=== PATIENT | female | born 1970 | race African-American/Black ===

== ENCOUNTER 2019-05-14 22:50 | Emergency (ER) | payer OTHER ==
[2019-05-14 23:03] VITALS: BP 135/93; PULSE 75; TEMP 98.7; BMI 26.6
[2019-05-14] MEDS ORDERED: KETOROLAC TROMETHAMINE 30 MG/1 ML VIAL IVPUSH ONE (23:16)
[2019-05-14] MEDS ORDERED: ONDANSETRON 4 MG/2 ML VIAL IVPB ONE (23:17)
[2019-05-14] MEDS ORDERED: KETOROLAC TROMETHAMINE 30 MG/1 ML VIAL ONE (23:27)
[2019-05-14] MEDS ORDERED: ONDANSETRON 4 MG/2 ML VIAL ONE (23:27)
[2019-05-14 23:34] LABS: BASO % 0.8 % (0-2.0); EOS % 5.6 % (0-4.5); HEMATOCRIT 34.1 % (32.4-45.2); HEMOGLOBIN 11.2 GM/dl (10.7-15.3); LYMPH % 50.8 % (8-40); MCH 26.6 pg (25.7-33.7); MCHC 32.8 g/dl (32.0-36.0); MEAN CELL VOLUME 81.1 fl (80-96); MEAN PLT VOLUME 7.2 fl (7.5-11.1); MONO % 5.2 % (3.8-10.2); NEUT % 37.6 % (42.8-82.8); PLATELET COUNT 400 K/MM3 (134-434); RDW 14.2 % (11.6-15.6); WHITE BLOOD COUNT 6.9 K/mm3 (4.0-10.8)
[2019-05-14 23:45] LABS: BILIRUBIN,TOTAL 0.3 mg/dl (0.2-1); CREATININE 0.6 mg/dl (0.55-1.3); POTASSIUM 4.1 mmol/L (3.5-5.1); TOT PROT 7.3 g/dl (6.4-8.2)
--- NOTE | 2019-05-15 01:08 | PDOC ---
Documentation entered by Madeline Henao SCRIBE, acting as scribe for Thong Gan MD. Thong Gan MD: This documentation has been prepared by the scribeJuliano Lincy, SCRIBE, under my direction and personally reviewed by me in its entirety. I confirm that the documentation accurately reflects all work, treatment, procedures, and medical decision making performed by me. History of Present Illness - General Chief Complaint: Pain Stated Complaint: R PELVIC PAIN - History of Present Illness Initial Comments: 05/14/19 23:18 Chief complaint: Abdominal pain HPI: Right lower quadrant abdominal pain for 2 days, getting worse. Accompanied by nausea and anorexia. No vomiting or diarrhea. No fever or chills. Seen at [facility] yesterday, where an ultrasound and urinalysis/ test were performed. The ultrasound showed only uterine fibroids. The urinalysis was clear and test negative. Review of systems: As above. LMP 2 weeks ago. No missed menses. No vaginal bleeding or discharge. Otherwise negative Past medical history: No active medical problems at present. No medications. No surgeries. Social/family history reviewed and noncontributory Physical exam: Alert and oriented moderately obese in acute distress with right lower quadrant abdominal pain. Cooperative Afebrile, vital signs stable No pallor or icterus. PERRLA, fundi benign, ENT clear Neck supple without bruit mass or nodes Lungs clear CV regular without murmur rub or gallop Abdomen with normal bowel sounds. Point tenderness in the right lower quadrant at McBurney's point, with guarding and the suggestion of rebound. No CVAT. Neurological intact. Extremities no CCE Skin clear, no rash, adequate turgor and wet mucous membranes Impression: Right lower quadrant pain. Urinalysis, test, and ultrasound done yesterday at another hospital negative. This was verified by phone call to the emergency doctor [employer] manager, who looked up the results and read them over the phone. No blood work or other examinations were performed. Physical examination today is consistent with possible appendicitis, although ruptured ovarian cyst is also possibility. Although WBC is not elevated and afebrile, CT nessary to exclude early Appy. Plan: CBC and chemistries, CT of the abdomen and pelvis, further medical/ surgical evaluation and treatment depending on results.Analgesics. 05/14/19 23:27 05/14/19 23:40 Past History - Past Medical History Allergies/Adverse Reactions: Allergies Allergy/AdvReac Type Severity Reaction Status Date / Time No Known Allergies Allergy Verified 11/01/14 13:51 Home Medications: Ambulatory Orders Diclofenac Sodium 75 mg PO BID PRN #20 tablet. 05/15/19 NK [No Known Home Medication] 05/15/19 - Psycho Social/Smoking Cessation Hx Smoking History: Current some day smoker Have you smoked in the past 12 months: Yes Number of Cigarettes Smoked Daily: 3 'Breaking Loose' booklet given: 11/01/14 *Physical Exam - Vital Signs Last Vital Signs Temp Pulse Resp BP Pulse Ox 98.7 F 75 14 135/93 100 05/14/19 22:59 05/14/19 22:59 05/14/19 22:59 05/14/19 22:59 05/14/19 22:59 ED Treatment Course - LABORATORY CBC & Chemistry Diagram: 05/14/19 23:20 05/14/19 23:20 - RADIOLOGY Radiology Studies Ordered: Category Date Time Status ABDOMEN & PELVIS CT W/O CONTR [CT] Stat CT Scan 05/14/19 23:15 Ordered Medical Decision Making - Medical Decision Making 05/15/19 01:00 CBC and chemistries normal CT reveals normal appendix, large right ovarian cyst. This is complex and needs follow-up Patient's pain is much improved with intravenous Toradol. She is much more comfortable and less tender on abdominal exam. Fully ambulatory, pain controlled and discharged to follow-up with [facility]. Discharge - Discharge Information Problems reviewed: Yes Clinical Impression/Diagnosis: Ovarian cyst Qualifiers: Laterality: right Qualified Code(s): N83.201 - Unspecified ovarian cyst, right side Condition: Improved Disposition: HOME - Admission No - Additional Discharge Information Prescriptions: Diclofenac Sodium 75 mg PO BID PRN #20 tablet.dr PRATER Reason: Pain - Follow up/Referral - Patient Discharge Instructions Patient Printed Discharge Instructions: DI for Ovarian Cyst Additional Instructions: You have a large ovarian cyst, that is probably leaking and causing pain. The pain will usually subside gradually in a few days. You may need to take pain medication as prescribed. It is necessary to see [facility] physician for follow-up to make sure that the cyst resolves and that it is benign. - Post Discharge Activity Work/Back to School Note: Back to Work
== END 2019-05-15 01:14 | disposition home or self-care (01) ==
LOC: FER 22:50
PROC: 3E0333Z Introduction of Anti-inflammatory into Peripheral Vein, Percutaneous Approach (ICD-10-PCS; principal; 2019-05-14)
PROC: 3E0337Z Introduction of Electrolytic and Water Balance Substance into Peripheral Vein, Percutaneous Approach (ICD-10-PCS; 2019-05-14)
DX: N83.201 Unspecified ovarian cyst, right side (principal); E66.9 Obesity, unspecified; Z68.26 Body mass index [BMI] 26.0-26.9, adult
CPT/HCPCS: 36415; 74176-TC; 80053; 81003; 84703; 85025; 99283-25

== ENCOUNTER 2019-09-13 13:13 | Emergency (ER) | payer OTHER ==
--- NOTE | 2019-09-13 13:15 | PDOC ---
Attending Attestation - Resident Resident Name: Edis Hdez - ED Attending Attestation I have performed the following: I have examined & evaluated the patient, The case was reviewed & discussed with the resident, I agree w/resident's findings & plan, Exceptions are as noted - HPI HPI: 09/13/19 15:01 Right lower quadrant and right pelvic pain for approximately 1 week. Partially controlled with ibuprofen, but not improving. LMP 2 weeks ago. Two missed menses prior to her last menstruation. Eating and drinking well without anorexia, nausea, vomiting, or diarrhea. No fever/chills, URI symptoms, sore throat, cough. Normal bowel movement yesterday. History of ovarian cysts. Ablation of fibroids in the past. No other abdominal surgery. - Physicial Exam PE: 09/13/19 15:03 Physical exam alert and oriented well-developed well-nourished very mild distress due to abdominal pain, cooperative Afebrile, vital signs normal No pallor or icterus. PERRLA, ENT clear Neck supple without bruit mass or nodes Lungs clear CV regular without murmur rub or gallop Abdomen nondistended, bowel sounds normal. Soft without mass organomegaly. There is mild to moderate tenderness in the right lower quadrant/right pelvic region with a suggestion of guarding but no rebound. No CVAT. - Medical Decision Making 09/13/19 15:04 Assessment: Probable ruptured ovarian cyst. Other possibilities include UTI, atypical renal colic, gastroenteritis, acute appendicitis, right-sided diverticulitis, Plan: CBC and chemistries, pelvic ultrasound, pelvic examination, further evaluation and treatment depending on results. 09/13/19 16:32 Pelvic exam performed by resident Dr. Hdez. No CMT. Enlarged uterus, nontender. Large right adnexal mass, minimal tenderness on bimanual. No bleeding, normal mucoid discharge. Ultrasound shows large right ovarian cyst. Large uterine fibroids. No fluid. Probable non-pathological lymph node on the left.Discussed with radiologist and pt. Symptomatic treatment with NSAIDs. Gynecology recheck for further evaluation and treatment within 1 week. Discharged with pain controlled to follow-up as directed. 09/13/19 17:36
[2019-09-13 13:24] VITALS: BP 119/81; PULSE 83; TEMP 98.1; BMI 31.3
--- NOTE | 2019-09-13 14:33 | PDOC ---
History of Present Illness - General Chief Complaint: Pain Stated Complaint: RIGHT PELVIC PAIN Time Seen by Provider: 09/13/19 13:14 History Source: Patient - History of Present Illness Initial Comments: 49F LMP 2/4PMH ovarian cysts, fibroids (s/p myomectomy) c/o 5 days of nonradiating, colicky RLQ pain with occasional nausea. Denies PO intolerance, vomiting. Denies vaginal discharge, bleeding, or pain. Denies cp/sob. h/o Ch 1 year ago s/p meds. Past History - Past Medical History Allergies/Adverse Reactions: Allergies Allergy/AdvReac Type Severity Reaction Status Date / Time No Known Allergies Allergy Verified 09/13/19 13:14 Home Medications: Ambulatory Orders Ibuprofen 800 mg PO TID #20 tablet 09/13/19 COPD: No - Reproductive History Is Patient Now?: No - Psycho Social/Smoking Cessation Hx Smoking History: Never smoked Have you smoked in the past 12 months: No Number of Cigarettes Smoked Daily: 3 'Breaking Loose' booklet given: 11/01/14 Hx Alcohol Use: (occasional) Drug/Substance Use Hx: No Review of Systems - Review of Systems Able to Perform ROS?: Yes Comments:: CONSTITUTIONAL: Denies F / C HEENT: Denies headache, lightheadedness, dizziness RESP: Denies SOB, cough CARD: Denies chest pain GI: endorse RLQ pain. endorse occasional nausea. Denies V / D, PO intolerance : Denies dysuria, vaginal bleeding/discharge/pain SKIN: Denies rashes NEURO: Denies numbness, tingling, weakness MSK: Denies back pain *Physical Exam - Vital Signs Last Vital Signs Temp Pulse Resp BP Pulse Ox 98.1 F 83 18 119/81 99 09/13/19 13:13 09/13/19 13:13 09/13/19 13:13 09/13/19 13:13 09/13/19 13:13 - Physical Exam GEN: Well appearing, NAD, AAOx3. HEENT: NC/AT. No facial asymmetry. Normal voice. Supple neck w/ FROM. CV: S1/S2, RRR, no m/r/g LUNG: CTAB, no wheezes, crackles, rales, rhonchi. GI: +TTP of the RLQ and suprapubically, soft, nd, +BS, no guarding, no rebound. PELVIC: Exam chaperoned by MA. No discharge, bleeding, and atrophy on inspection. Cervical os not visualized on speculum exam. No blood in vault. There is sticky thin maldonado discharge in the vault. Neg CMT on bimanual exam, no adnexal tenderness; mass felt on right adnexal sweep. MSK: No obvious deformities of all extremities. SKIN: Warm, dry, no rashes appreciated. PSYCH: Normal mood and affect. NEURO: Moving all extremities well. ambulates w/ normal gait ED Treatment Course - LABORATORY CBC & Chemistry Diagram: 09/13/19 14:40 09/13/19 15:00 - ADDITIONAL ORDERS Additional order review: Laboratory Results 09/13/19 09/13/19 13:28 13:28 Urine Color Yellow Urine Appearance Clear Urine pH 6.5 Urine Protein Negative Urine Glucose (UA) Negative Urine Ketones Negative Urine Blood Negative Urine Nitrite Negative Urine Bilirubin Negative Urine Urobilinogen 0.2 Ur Leukocyte Esterase Negative Urine HCG, Qual Negative - RADIOLOGY Radiology Studies Ordered: Category Date Time Status PELVIC / BLADDER US [US] Stat Ultrasound 09/13/19 14:28 Ordered Medical Decision Making - Medical Decision Making 09/13/19 14:32 49F LMP 2/4 PMH ovarian cysts, fibroids c/o 5 days of colicky, nonradiating RLQ pain. +TTP RLQ. DDx - mittelschmerz, ovarian cyst, fibroids; considering appendicitis; unlikely PID. - CBC, CMP - PELVIC US - Pain ctrl 09/13/19 17:17 US report reviewed, went over with patient, dicussed next steps and answered remaining questions dc home w/ administration clerk f/u Discharge - Discharge Information Problems reviewed: Yes Clinical Impression/Diagnosis: Ovarian cyst Qualifiers: Laterality: right Qualified Code(s): N83.201 - Unspecified ovarian cyst, right side Condition: Stable Disposition: HOME - Admission No - Additional Discharge Information Prescriptions: Ibuprofen 800 mg PO TID #20 tablet - Follow up/Referral Referrals: Karissa Ferguson DO [Primary Care Provider] - - Patient Discharge Instructions Patient Printed Discharge Instructions: Ovarian Cyst Additional Instructions: We sent a prescription to your pharmacy, please pick it up and take as directed. You may also take tylenol as directed on the label in conjunction with the prescription. Drink plenty of fluids. Follow up with your WEB ARCHITECT in the next 2-3 days. A copy of the your ultrasound was provided to you. Please bring that and this discharge packet to your WEB ARCHITECT. Return to the nearest Emergency Department if you develop worsening pain, a change in your pain, fevers, vomiting, inability to eat/drink, or with any concerns. - Post Discharge Activity
[2019-09-13 14:53] LABS: BASO % 0.6 % (0-2.0); EOS % 8.1 % (0-4.5); HEMATOCRIT 34.7 % (32.4-45.2); HEMOGLOBIN 11.2 GM/dl (10.7-15.3); LYMPH % 49.1 % (8-40); MCH 26.4 pg (25.7-33.7); MCHC 32.2 g/dl (32.0-36.0); MEAN CELL VOLUME 81.9 fl (80-96); MEAN PLT VOLUME 7.4 fl (7.5-11.1); MONO % 5.6 % (3.8-10.2); NEUT % 36.6 % (42.8-82.8); PLATELET COUNT 408 K/MM3 (134-434); RBC 4.24 M/mm3 (3.60-5.2); RDW 15.2 % (11.6-15.6); WHITE BLOOD COUNT 5.1 K/mm3 (4.0-10.8)
[2019-09-13 15:26] LABS: ALBUMIN 3.7 g/dl (3.4-5.0); BILIRUBIN,TOTAL 0.4 mg/dl (0.2-1); CALCIUM 8.8 mg/dl (8.5-10); CREATININE 0.6 mg/dl (0.55-1.3); POTASSIUM 4.1 mmol/L (3.5-5.1); TOT PROT 6.6 g/dl (6.4-8.2)
[2019-09-13] MEDS ORDERED: ACETAMINOPHEN 1000 MG/100 ML VIAL (NON FORMULARY) IVPB ONE (16:39)
[2019-09-13] MEDS ORDERED: ACETAMINOPHEN INJECTION 100 ML IVPB ONE (16:40)
== END 2019-09-13 17:30 | disposition home or self-care (01) ==
LOC: FER 13:13
PROC: 3E033NZ Introduction of Analgesics, Hypnotics, Sedatives into Peripheral Vein, Percutaneous Approach (ICD-10-PCS; principal; 2019-09-13)
DX: N83.201 Unspecified ovarian cyst, right side (principal); Z72.0 Tobacco use
CPT/HCPCS: 36415; 76856-TC; 80053; 81003; 84703; 85025; 99285-25; J0131

== ENCOUNTER 2021-03-27 21:33 | Emergency (ER) | payer OTHER ==
[2021-03-27 21:42] VITALS: BMI 31.6
[2021-03-27] MEDS ORDERED: ACETAMINOPHEN 1000 MG/100 ML VIAL (NON FORMULARY) IVPB ONE (22:43)
[2021-03-27] MEDS ORDERED: KETOROLAC TROMETHAMINE 30 MG/1 ML VIAL ONE (22:54)
[2021-03-27] MEDS ORDERED: KETOROLAC TROMETHAMINE 15 MG/ML VIAL IM ONE (23:02)
[2021-03-27 23:16] LABS: WHITE BLOOD COUNT 7.6 K/mm3 (4.0-10.8)
[2021-03-27 23:17] LABS: HEMATOCRIT 33.6 % (32.4-45.2); HEMOGLOBIN 10.8 GM/dl (10.7-15.3); LYMPH % 37.8 % (8-40); MCH 26.5 pg (25.7-33.7); MCHC 32.2 g/dl (32.0-36.0); MEAN CELL VOLUME 82.2 fl (80-96); MEAN PLT VOLUME 7.3 fl (7.5-11.1); MONO % 5.5 % (3.8-10.2); NEUT % 49.3 % (42.8-82.8); PLATELET COUNT 372 10^3/uL (134-434); RBC 4.08 M/mm3 (3.60-5.2); RDW 14.1 % (11.6-15.6)
[2021-03-27 23:18] LABS: EOS % 3.4 % (0-4.5)
[2021-03-27 23:32] LABS: BILIRUBIN,TOTAL 0.5 mg/dl (0.2-1); CALCIUM 9.5 mg/dl (8.5-10); CREATININE 0.7 mg/dl (0.55-1.3)
[2021-03-28 01:17] VITALS: BP 140/77; PULSE 66; TEMP 98.3
== END 2021-03-28 01:39 | disposition home or self-care (01) ==
LOC: FER 21:33
PROC: 3E023GC Introduction of Other Therapeutic Substance into Muscle, Percutaneous Approach (ICD-10-PCS; principal; 2021-03-27)
DX: N83.201 Unspecified ovarian cyst, right side (principal); D25.9 Leiomyoma of uterus, unspecified
CPT/HCPCS: 36415; 76856-TC; 80053; 81003; 84703; 85025; 87086; 87491; 87591; 99284-25

== ENCOUNTER 2021-12-18 23:02 | Emergency (ER) | payer OTHER ==
[2021-12-18 23:16] VITALS: BP 140/95; PULSE 82; TEMP 99.2; BMI 30.7
[2021-12-19] MEDS ORDERED: KETOROLAC TROMETHAMINE 60 MG/2 ML VIAL IM ONE (00:36)
[2021-12-19] MEDS ORDERED: KETOROLAC TROMETHAMINE 60 MG/2 ML VIAL ONE (00:41)
== END 2021-12-19 01:12 | disposition home or self-care (01) ==
LOC: FER 23:02
PROC: 3E023GC Introduction of Other Therapeutic Substance into Muscle, Percutaneous Approach (ICD-10-PCS; principal; 2021-12-19)
DX: S46.912A Strain of unspecified muscle, fascia and tendon at shoulder and upper arm level, left arm, initial encounter (principal); Y99.9 Unspecified external cause status
CPT/HCPCS: 73030-TC-LT-FY; 93005; 93010; 99284-25

== ENCOUNTER 2024-06-06 13:36 | Emergency (ER) | payer OTHER ==
[2024-06-06 13:46] VITALS: BP 158/90; PULSE 73; RESP 16; TEMP 97.9; BMI 31.4
[2024-06-06] MEDS ORDERED: METHOCARBAMOL 500 MG TABLET ONE (14:17)
[2024-06-06] MEDS: ACETAMINOPHEN 325 MG TABLET (FP) PO ONE (14:18)
[2024-06-06] MEDS: IBUPROFEN 400 MG TABLET (FP) PO ONE (14:18)
[2024-06-06] MEDS: METHOCARBAMOL 500 MG TABLET PO ONE (14:21)
== END 2024-06-06 14:55 | disposition home or self-care (01) ==
LOC: JERFT 13:36
DX: Z04.1 Encounter for examination and observation following transport accident (principal); V49.50XA Passenger injured in collision with unspecified motor vehicles in traffic accident, initial encounter; Y92.410 Unspecified street and highway as the place of occurrence of the external cause
CPT/HCPCS: 99283-25